=== PATIENT | female | born 1990 | race Caucasian/White ===

== ENCOUNTER → 2016-07-12 | Outpatient (CLI) | payer MEDICAID | LOC: RAD 15:22 | PROVIDERS: ATTEND Nurse Practitioner Women's Health | DX: Z34.81 Encounter for supervision of other normal pregnancy, first trimester (principal) | CPT/HCPCS: 76801 ==

== ENCOUNTER 2016-12-07 10:28 | Outpatient (CLI) | payer MEDICAID ==
--- NOTE | 2016-12-07 12:02 | Non Stress Test Report ---
Non Stress Test Datetime Report Generated by CPN: 12/07/2016 12:02 DEMOGRAPHIC EGA NST: 68.0 INDICATION Indication for Study: Ordered by Provider Indication for Study (NST) Other: SGA VITAL SIGNS Temperature - NST: 97.7 NBPSYS NST: 91 NBPDIA NST: 52 MONITORING Monitor Explained: Monitor Explained; Test Explained; Patient Verbalized Understanding Time on Monitor: 12/07/2016 10:49 Time on Monitor: 12/07/2016 10:45 Time off Monitor: 12/07/2016 11:45 Time off Monitor: 12/07/2016 11:45 NST Duration: 56 NST Duration: 60 NST INTERVENTIONS NST Interventions: Reposition Patient Physician Notified NST: J Newsome CNM BABY A: [id number] BABY A Movement : Present FHR Baseline : 125 Accelerations : 15X15 Accelerations : 15X15 Decelerations : None Variability : Moderate 6-25bpm NST Review: Meets Criteria for Reactive NST NST Review: Meets Criteria for Reactive NST NST Review and Verified By : Ana Merino [facility] NST Results: Reactive NST Results: Reactive NST REPORT Report Trigger: Send Report
== END 2016-12-07 11:54 | disposition home or self-care (01) ==
LOC: LC 10:28
PROVIDERS: ATTEND Obstetrics & Gynecology
PROC: 4A1HXCZ Monitoring of Products of Conception, Cardiac Rate, External Approach (ICD-10-PCS; principal; 2016-12-07)
DX: O36.5930 Maternal care for other known or suspected poor fetal growth, third trimester, not applicable or unspecified (principal); Z3A.40 40 weeks gestation of pregnancy
CPT/HCPCS: 59025

== ENCOUNTER 2016-12-15 11:46 | Outpatient (CLI) | payer MEDICAID | END 2016-12-15 12:25 | disposition home or self-care (01) | LOC: LC 11:46 | PROVIDERS: ATTEND Specialist | PROC: 4A1HXCZ Monitoring of Products of Conception, Cardiac Rate, External Approach (ICD-10-PCS; principal; 2016-12-15) | DX: Z34.83 Encounter for supervision of other normal pregnancy, third trimester (principal) | CPT/HCPCS: 59025 ==

== ENCOUNTER 2016-12-24 11:45 | Outpatient (CLI) | payer MEDICAID | END 2016-12-24 12:56 | disposition home or self-care (01) | LOC: LC 11:45 → 5TH 11:52 → LC 11:52 | PROVIDERS: ATTEND Obstetrics & Gynecology | PROC: 4A1HXCZ Monitoring of Products of Conception, Cardiac Rate, External Approach (ICD-10-PCS; principal; 2016-12-24) | DX: Z34.93 Encounter for supervision of normal pregnancy, unspecified, third trimester (principal); Z36.89 Encounter for other specified antenatal screening; Z3A.35 35 weeks gestation of pregnancy | CPT/HCPCS: 59025 ==